=== PATIENT | female | born 1960 | race Caucasian/White ===

== ENCOUNTER 2017-10-29 09:06 | Outpatient (CLI) | payer OTHER | END 2017-10-29 09:07 | disposition home or self-care (01) | LOC: BICMAMMO 09:06 | PROVIDERS: ATTEND Family Medicine | DX: Z12.31 Encounter for screening mammogram for malignant neoplasm of breast (principal); Z80.3 Family history of malignant neoplasm of breast | CPT/HCPCS: 77063; 77067 ==

== ENCOUNTER 2017-11-18 10:24 | Outpatient (CLI) | payer OTHER ==
--- NOTE | 2017-11-18 13:00 | RAD ---
RIGHT HAND 3 VIEWS: HISTORY: Swelling x 2-4 weeks. No reported injury. COMPARISON: None. FINDINGS: No fracture. No cortical irregularity. No periosteal reaction. No significant soft tissue swelling . IMPRESSION: Unremarkable 3 views right hand. POS: [facility]
== END 2017-11-18 10:25 ==
LOC: SCSRAD 10:24
PROVIDERS: ATTEND Family Medicine
DX: M13.0 Polyarthritis, unspecified (principal)
CPT/HCPCS: 36415; 83520; 84550; 85652; 86038; 86200; 86225

== ENCOUNTER 2018-10-31 15:07 | Outpatient (CLI) | payer OTHER ==
--- NOTE | 2018-10-31 15:42 | MMO ---
Bilateral MAMMO Bilat Screen [facility]. CLINICAL HISTORY: Patient is 58 years old and is seen for screening. The patient has no family history of breast cancer. The patient has no personal history of cancer. VIEWS: The views performed were: bilateral craniocaudal with tomosynthesis and bilateral mediolateral oblique with tomosynthesis. FILMS COMPARED: The present examination has been compared to prior imaging studies performed at [facility] on 10/25/2016 and 10/29/2017. MAMMOGRAM FINDINGS: The breasts are heterogeneously dense, which could obscure a lesion on mammography. There are no suspicious masses, calcifications or areas of architectural distortion. There are benign appearing calcifications in both breasts. There are no suspicious masses, suspicious calcifications, or new areas of architectural distortion. IMPRESSION: THERE IS NO MAMMOGRAPHIC EVIDENCE OF MALIGNANCY. A ROUTINE FOLLOW-UP MAMMOGRAM IN 1 YEAR IS RECOMMENDED. THE RESULTS OF THIS EXAM WERE SENT TO THE PATIENT. ACR BI-RADS Category 2 - Benign finding MAMMOGRAPHY NOTE: 1. A negative mammogram report should not delay a biopsy if a dominant of clinically suspicious mass is present. 2. Approximately 10% to 15% of breast cancers are not detected by mammography. 3. Adenosis and dense breasts may obscure an underlying neoplasm. Reported by: FALLON MELGOZA MD Electonically Signed: [id number]
== END 2018-10-31 15:08 | disposition home or self-care (01) ==
LOC: BICMAMMO 15:07
PROVIDERS: ATTEND Family Medicine
DX: Z12.31 Encounter for screening mammogram for malignant neoplasm of breast (principal)
CPT/HCPCS: 77063; 77067

== ENCOUNTER 2019-11-04 09:12 | Outpatient (CLI) | payer OTHER ==
--- NOTE | 2019-11-04 11:51 | MMO ---
Bilateral MAMMO Bilat Screen [facility]. CLINICAL HISTORY: Patient is 59 years old and is seen for screening. The patient has the following family history of breast cancer: mother, malignant (generic). The patient has no personal history of cancer. VIEWS: The views performed were: bilateral craniocaudal with tomosynthesis; bilateral mediolateral oblique with tomosynthesis; and bilateral exaggerated craniocaudal. FILMS COMPARED: The present examination has been compared to prior imaging studies performed at [facility] on 10/25/2016, 10/29/2017 and 10/31/2018. This study has been interpreted with the assistance of computer-aided detection. MAMMOGRAM FINDINGS: The breasts are heterogeneously dense, which could obscure a lesion on mammography. Benign calcifications are noted bilaterally. There are no suspicious masses, suspicious calcifications, or new areas of architectural distortion. IMPRESSION: THERE IS NO MAMMOGRAPHIC EVIDENCE OF MALIGNANCY. A ROUTINE FOLLOW-UP MAMMOGRAM IN 1 YEAR IS RECOMMENDED. THE RESULTS OF THIS EXAM WERE SENT TO THE PATIENT. ACR BI-RADS Category 2 - Benign finding MAMMOGRAPHY NOTE: 1. A negative mammogram report should not delay a biopsy if a dominant of clinically suspicious mass is present. 2. Approximately 10% to 15% of breast cancers are not detected by mammography. 3. Adenosis and dense breasts may obscure an underlying neoplasm. Reported by: ANDREA GRIJALVA MD Electonically Signed: [id number]
== END 2019-11-04 09:13 | disposition home or self-care (01) ==
LOC: BICMAMMO 09:12
PROVIDERS: ATTEND Family Medicine
DX: Z12.31 Encounter for screening mammogram for malignant neoplasm of breast (principal); Z80.3 Family history of malignant neoplasm of breast
CPT/HCPCS: 77063; 77067

== ENCOUNTER 2021-08-22 16:57 | Outpatient (CLI) | payer OTHER | END 2021-08-22 16:58 | disposition home or self-care (01) | LOC: SCSRAD 16:57 | PROVIDERS: ATTEND Family Medicine | DX: S63.501A Unspecified sprain of right wrist, initial encounter (principal) ==

== ENCOUNTER 2021-11-07 10:12 | Outpatient (CLI) | payer OTHER | END 2021-11-07 10:13 | disposition home or self-care (01) | LOC: BICMAMMO 10:12 | PROVIDERS: ATTEND Family Medicine | DX: Z12.31 Encounter for screening mammogram for malignant neoplasm of breast (principal); Z85.820 Personal history of malignant melanoma of skin; Z80.3 Family history of malignant neoplasm of breast; Z91.89 Other specified personal risk factors, not elsewhere classified | CPT/HCPCS: 77063; 77067 ==

== ENCOUNTER 2021-12-09 07:18 | Inpatient (IN) | payer OTHER ==
[2021-12-09 08:32] VITALS: BMI 26.0
[2021-12-09] MEDS ORDERED: Fentanyl 100 MCG/2 ML VIAL SLOW IVP PRN ×3 (09:09→12:10)
[2021-12-09] MEDS ORDERED: Electrolyte Replacement Protocol 1 EACH FS SCH (09:45)
[2021-12-09] MEDS ORDERED: Norepinephrine 4 MG/4 ML VIAL ONE (09:50)
[2021-12-09] MEDS ORDERED: PHENYLEPHRINE-NS 100 MCG/ML 10 ML SYRINGE ONE ×2 (09:51→10:32)
[2021-12-09] MEDS ORDERED: Phenylephrine 10 MG/ML VIAL ONE (09:52)
[2021-12-09] MEDS: Ondansetron PF 4 MG/2 ML Vial IVP PRN (09:54)
[2021-12-09] MEDS ORDERED: Electrolyte Replacement Protocol FS PRN (10:00)
[2021-12-09] MEDS ORDERED: Pantoprazole 40 MG VIAL IVP SCH (10:00)
[2021-12-09] MEDS ORDERED: Magnesium 2 GM/50 ML(in water) 2 GM in Premix Bag 1 BAG IVPB SCH (10:00)
[2021-12-09] MEDS ORDERED: Bupivacaine PF 0.5% 30 ML VIAL ONE (10:09)
[2021-12-09] MEDS ORDERED: Iopamidol 0 ML ONE (10:09)
[2021-12-09] MEDS ORDERED: EPINEPHrine 1 MG/ML AMP ONE (10:09)
[2021-12-09] MEDS ORDERED: fentaNYL Citrate/PF 100 MCG/2 ML SYRINGE ONE (10:11)
[2021-12-09] MEDS ORDERED: Clindamycin/D5W 900 mg/50 ml Premix Bag ONE (10:25)
[2021-12-09] MEDS ORDERED: CEFAZOLIN 2 GM in Sodium Chloride 0.9% 100 ML IVPB SCH (10:30)
[2021-12-09] MEDS ORDERED: Clindamycin/D5W 900 MG in Premix Bag 1 BAG IVPB SCH (10:30)
[2021-12-09] MEDS ORDERED: FLU VACC QS2022-23(6MOS UP)/PF 60 MCG/0.5 ML SYRINGE IM ONE (10:30)
[2021-12-09] MEDS ORDERED: ePHEDrine 50 MG/ML VIAL ONE (10:32)
[2021-12-09] MEDS ORDERED: Rocuronium Bromide 10 MG/ML (10ML VIAL) ONE (10:32)
[2021-12-09] MEDS ORDERED: Dexamethasone 20 MG/5 ML VIAL ONE (10:32)
[2021-12-09] MEDS ORDERED: Metoclopramide HCl 10 MG/2 ML VIAL ONE (10:32)
[2021-12-09] MEDS ORDERED: Ondansetron PF 4 MG/2 ML Vial ONE (10:32)
[2021-12-09 10:40] LABS: INR-International Normal Ratio 1.8; Prothrombin Time 21.4 sec (12.0-14.7)
[2021-12-09 10:41] LABS: PTT 35.5 sec (22.9-36.1)
[2021-12-09] MEDS ORDERED: SUGAMMADEX SODIUM 200 MG/2 ML VIAL ONE ×2 (10:56→11:04)
[2021-12-09] MEDS: Cefepime 2 GM in Sodium Chloride 0.9% 100 ML IVPB SCH ×2 (11:45→17:18)
[2021-12-09] MEDS ORDERED: traMADol HCl 50 MG TAB PO PRN ×2 (12:10)
[2021-12-09] MEDS: Potassium Chloride 20 MEQ in Premix Bag 1 BAG IVPB SCH ×4 (12:21→17:22)
[2021-12-09 13:38] LABS: Creatinine, Urine 103.57 mg/dL (47-110); Sodium, Urine Less than 20 mmol/L (Not Available)
[2021-12-09] MEDS: Dronedarone HCl 400 MG TAB PO SCH (17:18)
[2021-12-09] MEDS: Sodium Chloride 0.9% 1,000 ML IV SCH (17:21)
[2021-12-09] MEDS: Metoprolol Tartrate 25 MG TAB PO SCH (21:53)
[2021-12-10] MEDS: Cefepime 2 GM in Sodium Chloride 0.9% 100 ML IVPB SCH ×3 (02:43→18:19)
[2021-12-10] MEDS: Sodium Chloride 0.9% 1,000 ML IV SCH (03:49)
[2021-12-10 04:27] LABS: #Basophils 0.1 thou/uL (0.0-0.2); #Eosinphils 0.1 thou/uL (0.0-0.7); #Monocytes 1.2 thou/uL (0.11-0.59); #Neutrophils 15.1 thou/uL (1.40-6.50); %Basophils 0.5 % (0.0-1.0); %Eosinophils 0.4 % (0.0-10.0); %Monocytes 6.4 % (0.0-10.0); %Neutrophils 81.7 % (42.0-75.0); Hemoglobin 9.4 g/dL (12.0-16.0); Mean Corpuscular HGB CONC 32.9 g/dL (32.0-36.0); Mean Corpuscular Hemoglobin 30.3 pg (27.0-31.0); Mean Corpuscular Volume 92.2 fL (78.0-98.0); Mean Platelet Volume 7.1 fL (7.4-10.4); Platelet Count 418 thou/uL (130-400); RBC Distribution Width 12.8 % (11.5-14.5); Red Blood Cell (RBC) Count 3.09 mill/uL (4.20-5.40); White Blood Cell (WBC) Count 18.5 thou/uL (4.8-10.8)
[2021-12-10 04:48] LABS: Lactic Acid 1.7 mmol/L (0.5-2.2)
[2021-12-10 04:53] LABS: Anion Gap 10 mmol/L (10-20); BUN (Urea Nitrogen) 12 mg/dL (9.8-20.1); Calc. Creatinine Clearance 98 mL/min (70-130); Calcium 7.8 mg/dL (7.8-10.44); Carbon Dioxide 25 mmol/L (23-31); Chloride 102 mmol/L (98-107); Estimated GFR 99; Glucose 116 mg/dL (80-115); Magnesium 2.1 mg/dL (1.6-2.6); Sodium 133 mmol/L (136-145)
[2021-12-10 04:56] LABS: ALT (SGPT) 129 U/L (8-55); AST (SGOT) 56 U/L (5-34); Albumin 2.7 g/dL (3.4-4.8); Alkaline Phosphatase 85 U/L (40-110); Bilirubin, Direct 0.2 mg/dL (0.1-0.3); Bilirubin, Total 0.4 mg/dL (0.2-1.2); Protein, Total 4.9 g/dL (5.8-8.1)
[2021-12-10] MEDS: Metoprolol Tartrate 25 MG TAB PO SCH (08:27)
[2021-12-10] MEDS ORDERED: ABATACEPT SC SCH (09:00)
[2021-12-10] MEDS: Dronedarone HCl 400 MG TAB PO SCH ×2 (09:09→18:19)
[2021-12-10] MEDS: Pantoprazole 40 MG VIAL IVP SCH (09:10)
[2021-12-10] MEDS: Levothyroxine Sodium 25 MCG TAB PO SCH (09:10)
[2021-12-10] MEDS: Acetaminophen 325 MG TAB PO PRN ×2 (14:42→19:08)
[2021-12-10] MEDS ORDERED: Metoprolol Tartrate 5 MG/5 ML VIAL IVP PRN (21:29)
[2021-12-11] MEDS: Acetaminophen 325 MG TAB PO PRN (00:22)
[2021-12-11] MEDS: Ondansetron PF 4 MG/2 ML Vial IVP PRN (00:22)
[2021-12-11] MEDS: Cefepime 2 GM in Sodium Chloride 0.9% 100 ML IVPB SCH ×3 (02:53→18:42)
[2021-12-11 05:06] LABS: Anion Gap 12 mmol/L (10-20); BUN (Urea Nitrogen) 13 mg/dL (9.8-20.1); Calc. Creatinine Clearance 94 mL/min (70-130); Carbon Dioxide 24 mmol/L (23-31); Chloride 102 mmol/L (98-107); Estimated GFR 98; Glucose 92 mg/dL (80-115); Magnesium 1.9 mg/dL (1.6-2.6); Potassium 4.3 mmol/L (3.5-5.1); Sodium 134 mmol/L (136-145)
[2021-12-11 07:01] LABS: Hemoglobin 10.7 g/dL (12.0-16.0); Lymphocytes 12 % (21-51); MDiff Complete? YES; Mean Corpuscular Hemoglobin 30.6 pg (27.0-31.0); Mean Corpuscular Volume 92.6 fL (78.0-98.0); Mean Platelet Volume 6.8 fL (7.4-10.4); Monocytes 8 % (0-10); Neutrophil 80 % (42-75); Platelet Count 539 thou/uL (130-400); Platelet Morphology Comment Appears Increased; Polychromasia MODERATE = 3-4 cells (100X) (0-2/hpf); Small Platelets SLIGHT
[2021-12-11] MEDS: Levothyroxine Sodium 25 MCG TAB PO SCH (08:43)
[2021-12-11] MEDS: Pantoprazole 40 MG VIAL IVP SCH (08:43)
[2021-12-11] MEDS: Dronedarone HCl 400 MG TAB PO SCH ×2 (08:43→16:21)
[2021-12-11] MEDS ORDERED: Magnesium 2 GM/50 ML(in water) 2 GM in Premix Bag 1 BAG IVPB SCH (09:00)
[2021-12-11] MEDS ORDERED: Digoxin 0.5 MG/2 ML AMP SLOW IVP SCH ×2 (10:30→12:30)
[2021-12-11] MEDS ORDERED: Colchicine 0.6 MG TAB PO SCH (10:30)
[2021-12-11] MEDS ORDERED: Digoxin 0.25 MG TAB PO SCH (14:30)
[2021-12-11] MEDS: Sodium Chloride 0.9% 1,000 ML IV SCH (14:51)
[2021-12-11] MEDS: Colchicine 0.6 MG TAB PO SCH (20:28)
[2021-12-12] MEDS: Cefepime 2 GM in Sodium Chloride 0.9% 100 ML IVPB SCH ×3 (02:02→17:17)
[2021-12-12 04:37] LABS: #Basophils 0.1 thou/uL (0.0-0.2); #Eosinphils 0.1 thou/uL (0.0-0.7); #Lymphocytes 1.7 thou/uL (1.20-3.40); #Monocytes 1.1 thou/uL (0.11-0.59); #Neutrophils 16.8 thou/uL (1.40-6.50); %Basophils 0.3 % (0.0-1.0); %Eosinophils 0.5 % (0.0-10.0); %Lymphocytes 8.7 % (21.0-51.0); %Monocytes 5.5 % (0.0-10.0); Hemoglobin 10.9 g/dL (12.0-16.0); Mean Corpuscular Volume 93.8 fL (78.0-98.0); Mean Platelet Volume 6.5 fL (7.4-10.4); Platelet Count 533 thou/uL (130-400); RBC Distribution Width 13.2 % (11.5-14.5); Red Blood Cell (RBC) Count 3.64 mill/uL (4.20-5.40); White Blood Cell (WBC) Count 19.7 thou/uL (4.8-10.8)
[2021-12-12 05:05] LABS: ALT (SGPT) 74 U/L (8-55); AST (SGOT) 24 U/L (5-34); Albumin 2.9 g/dL (3.4-4.8); Alkaline Phosphatase 81 U/L (40-110); Anion Gap 9 mmol/L (10-20); BUN (Urea Nitrogen) 8 mg/dL (9.8-20.1); Bilirubin, Total 0.6 mg/dL (0.2-1.2); Calc. Creatinine Clearance 99 mL/min (70-130); Carbon Dioxide 27 mmol/L (23-31); Chloride 100 mmol/L (98-107); Estimated GFR 100; Globulin 2.6 g/dL (2.4-3.5); Glucose 107 mg/dL (80-115); Potassium 4.2 mmol/L (3.5-5.1); Protein, Total 5.5 g/dL (5.8-8.1); Sodium 132 mmol/L (136-145)
[2021-12-12] MEDS: Digoxin 0.25 MG TAB PO SCH (09:20)
[2021-12-12] MEDS: Colchicine 0.6 MG TAB PO SCH ×2 (09:20→21:17)
[2021-12-12] MEDS: Levothyroxine Sodium 25 MCG TAB PO SCH (09:21)
[2021-12-12] MEDS: Dronedarone HCl 400 MG TAB PO SCH ×2 (09:21→16:27)
[2021-12-12] MEDS: Sodium Chloride 0.9% 1,000 ML IV SCH (16:24)
[2021-12-12] MEDS: Ondansetron PF 4 MG/2 ML Vial IVP PRN (16:27)
[2021-12-12] MEDS ORDERED: Loperamide HCl 2 MG CAP PO PRN (20:37)
[2021-12-13] MEDS: Cefepime 2 GM in Sodium Chloride 0.9% 100 ML IVPB SCH ×2 (01:54→09:39)
[2021-12-13 05:13] LABS: #Eosinphils 0.1 thou/uL (0.0-0.7); #Lymphocytes 2.1 thou/uL (1.20-3.40); #Neutrophils 10.6 thou/uL (1.40-6.50); %Basophils 0.2 % (0.0-1.0); %Eosinophils 0.8 % (0.0-10.0); %Lymphocytes 14.9 % (21.0-51.0); %Monocytes 7.5 % (0.0-10.0); %Neutrophils 76.6 % (42.0-75.0); Hemoglobin 10.6 g/dL (12.0-16.0); Mean Corpuscular HGB CONC 32.1 g/dL (32.0-36.0); Mean Corpuscular Hemoglobin 29.9 pg (27.0-31.0); Mean Platelet Volume 6.7 fL (7.4-10.4); Platelet Count 494 thou/uL (130-400); RBC Distribution Width 13.3 % (11.5-14.5); Red Blood Cell (RBC) Count 3.55 mill/uL (4.20-5.40); White Blood Cell (WBC) Count 13.8 thou/uL (4.8-10.8)
[2021-12-13 05:15] LABS: ALT (SGPT) 50 U/L (8-55); AST (SGOT) 21 U/L (5-34); Albumin 2.7 g/dL (3.4-4.8); Alkaline Phosphatase 74 U/L (40-110); Anion Gap 13 mmol/L (10-20); BUN (Urea Nitrogen) 7 mg/dL (9.8-20.1); Bilirubin, Total 0.6 mg/dL (0.2-1.2); Calc. Creatinine Clearance 120 mL/min (70-130); Carbon Dioxide 24 mmol/L (23-31); Chloride 103 mmol/L (98-107); Estimated GFR 104; Globulin 2.4 g/dL (2.4-3.5); Glucose 93 mg/dL (80-115); Potassium 3.8 mmol/L (3.5-5.1); Protein, Total 5.1 g/dL (5.8-8.1); Sodium 136 mmol/L (136-145)
[2021-12-13] MEDS: Dronedarone HCl 400 MG TAB PO SCH ×2 (09:40→17:20)
[2021-12-13] MEDS: Levothyroxine Sodium 25 MCG TAB PO SCH (09:40)
[2021-12-13] MEDS: Digoxin 0.25 MG TAB PO SCH (09:40)
[2021-12-13] MEDS: Sodium Chloride 0.9% 1,000 ML IV SCH (17:33)
[2021-12-14 04:20] LABS: #Eosinphils 0.1 thou/uL (0.0-0.7); #Lymphocytes 1.5 thou/uL (1.20-3.40); #Monocytes 0.9 thou/uL (0.11-0.59); #Neutrophils 8.5 thou/uL (1.40-6.50); %Lymphocytes 13.9 % (21.0-51.0); %Monocytes 8.2 % (0.0-10.0); %Neutrophils 76.9 % (42.0-75.0); Hemoglobin 9.7 g/dL (12.0-16.0); Mean Corpuscular Hemoglobin 29.7 pg (27.0-31.0); Mean Corpuscular Volume 92.9 fL (78.0-98.0); Mean Platelet Volume 6.3 fL (7.4-10.4); Platelet Count 481 thou/uL (130-400); RBC Distribution Width 13.2 % (11.5-14.5); Red Blood Cell (RBC) Count 3.26 mill/uL (4.20-5.40); White Blood Cell (WBC) Count 11.1 thou/uL (4.8-10.8)
[2021-12-14 04:37] LABS: ALT (SGPT) 46 U/L (8-55); AST (SGOT) 24 U/L (5-34); Albumin 2.6 g/dL (3.4-4.8); Alkaline Phosphatase 66 U/L (40-110); Anion Gap 12 mmol/L (10-20); BUN (Urea Nitrogen) 6 mg/dL (9.8-20.1); Bilirubin, Total 0.6 mg/dL (0.2-1.2); Calc. Creatinine Clearance 104 mL/min (70-130); Calcium 7.8 mg/dL (7.8-10.44); Carbon Dioxide 26 mmol/L (23-31); Chloride 100 mmol/L (98-107); Estimated GFR 102; Globulin 2.4 g/dL (2.4-3.5); Glucose 88 mg/dL (80-115); Potassium 3.7 mmol/L (3.5-5.1); Sodium 134 mmol/L (136-145)
[2021-12-14] MEDS: Levothyroxine Sodium 25 MCG TAB PO SCH (09:19)
[2021-12-14] MEDS: Dronedarone HCl 400 MG TAB PO SCH ×2 (09:19→17:09)
[2021-12-14] MEDS: Digoxin 0.25 MG TAB PO SCH (09:19)
[2021-12-14] MEDS: Ondansetron PF 4 MG/2 ML Vial IVP PRN (13:10)
[2021-12-14] MEDS: Acetaminophen 325 MG TAB PO PRN (13:13)
[2021-12-14] MEDS ORDERED: Lidocaine 1% (PF) 30 ML VIAL ONE (15:55)
[2021-12-14] MEDS ORDERED: Sodium Chloride 0.9% 1,000 ML IV SCH (16:15)
[2021-12-14 16:33] LABS: #Eosinphils 0.1 thou/uL (0.0-0.7); #Lymphocytes 1.6 thou/uL (1.20-3.40); #Monocytes 1.3 thou/uL (0.11-0.59); #Neutrophils 12.4 thou/uL (1.40-6.50); %Basophils 0.1 % (0.0-1.0); %Eosinophils 0.4 % (0.0-10.0); %Lymphocytes 10.6 % (21.0-51.0); %Monocytes 8.4 % (0.0-10.0); %Neutrophils 80.6 % (42.0-75.0); Hemoglobin 11.1 g/dL (12.0-16.0); Mean Corpuscular HGB CONC 32.4 g/dL (32.0-36.0); Mean Corpuscular Volume 92.6 fL (78.0-98.0); Mean Platelet Volume 6.2 fL (7.4-10.4); Platelet Count 537 thou/uL (130-400); RBC Distribution Width 13.3 % (11.5-14.5); White Blood Cell (WBC) Count 15.4 thou/uL (4.8-10.8)
[2021-12-14 16:47] LABS: ALT (SGPT) 43 U/L (8-55); AST (SGOT) 19 U/L (5-34); Albumin 2.8 g/dL (3.4-4.8); Alkaline Phosphatase 76 U/L (40-110); Anion Gap 14 mmol/L (10-20); BUN (Urea Nitrogen) 6 mg/dL (9.8-20.1); Bilirubin, Total 0.8 mg/dL (0.2-1.2); Calc. Creatinine Clearance 97 mL/min (70-130); Calcium 7.9 mg/dL (7.8-10.44); Carbon Dioxide 24 mmol/L (23-31); Chloride 99 mmol/L (98-107); Estimated GFR 100; Globulin 2.6 g/dL (2.4-3.5); Glucose 134 mg/dL (80-115); Potassium 3.5 mmol/L (3.5-5.1); Protein, Total 5.4 g/dL (5.8-8.1); Sodium 133 mmol/L (136-145)
[2021-12-14 17:57] LABS: Pleural Fluid, Amylase Less than 30 U/L (Not Available); Pleural Fluid, Glucose 113 mg/dL; Pleural Fluid, LDH 153 U/L (Not Available); Pleural Fluid, Protein 2.7 g/dL
[2021-12-14 18:48] LABS: RBC Count-Automated (BF) 634 /cu.mm; WBC/Nucleated-Auto (BF) 823 /cu.mm
[2021-12-14 19:12] LABS: Body Fluid Source Pleural Fluid
[2021-12-14 19:13] LABS: BF Color Yellow; Clarity Hazy (Clear); Tube # EDTA
[2021-12-14] MEDS ORDERED: Cefepime 1 GM in Sodium Chloride 0.9% 100 ML IVPB SCH (19:15)
[2021-12-14 19:20] LABS: BF Segmented Neutrophils 10 %
[2021-12-14 19:22] LABS: Cell Count Non Hematic 50 %; Lymphocytes 40 %
[2021-12-14 20:00] LABS: Bacteria/HPF None Seen HPF (None Seen); Bilirubin Negative (Negative); Blood, Urine 1+ (Negative); Clarity Clear (Clear); Glucose, Urine (Dipstick) Normal (Negative); Ketone, Urine Negative (Negative); Leukocyte Negative Leu/uL (Negative); Nitrite Negative (Negative); Protein, Urine (Dipstick) Negative (Neg-Trace); Specific Gravity, Urine 1.008 (1.002-1.036); Squamous Epithelial None Seen HPF (0-3); Urobilinogen Normal mg/dL (Less than 2); WBC/HPF 0-3 HPF (0-3)
[2021-12-14 20:03] LABS: Urine Culture Reflex No No
[2021-12-14] MEDS: Sodium Chloride 0.9% 1,000 ML IV SCH (20:48)
[2021-12-14] MEDS: Ibuprofen 600 MG TAB PO SCH (20:48)
[2021-12-14] MEDS: Cefepime 2 GM in Sodium Chloride 0.9% 100 ML IVPB SCH (20:49)
[2021-12-15] MEDS ORDERED: Potassium Chloride 20 MEQ TAB PO SCH (00:30)
[2021-12-15] MEDS: Cefepime 2 GM in Sodium Chloride 0.9% 100 ML IVPB SCH ×3 (03:54→20:36)
[2021-12-15] MEDS: Ibuprofen 600 MG TAB PO SCH ×4 (03:54→20:36)
[2021-12-15 04:31] LABS: #Basophils 0.1 thou/uL (0.0-0.2); #Eosinphils 0.2 thou/uL (0.0-0.7); #Lymphocytes 2.3 thou/uL (1.20-3.40); #Monocytes 1.3 thou/uL (0.11-0.59); #Neutrophils 7.2 thou/uL (1.40-6.50); %Basophils 0.5 % (0.0-1.0); %Eosinophils 1.4 % (0.0-10.0); %Monocytes 11.8 % (0.0-10.0); %Neutrophils 65.3 % (42.0-75.0); Hemoglobin 10.5 g/dL (12.0-16.0); Mean Corpuscular HGB CONC 31.8 g/dL (32.0-36.0); Mean Corpuscular Hemoglobin 29.8 pg (27.0-31.0); Mean Corpuscular Volume 93.7 fL (78.0-98.0); Mean Platelet Volume 6.3 fL (7.4-10.4); Platelet Count 529 thou/uL (130-400); RBC Distribution Width 13.3 % (11.5-14.5); Red Blood Cell (RBC) Count 3.53 mill/uL (4.20-5.40); White Blood Cell (WBC) Count 11.1 thou/uL (4.8-10.8)
[2021-12-15 04:53] LABS: ALT (SGPT) 36 U/L (8-55); AST (SGOT) 18 U/L (5-34); Albumin 2.5 g/dL (3.4-4.8); Alkaline Phosphatase 69 U/L (40-110); Anion Gap 12 mmol/L (10-20); BUN (Urea Nitrogen) 6 mg/dL (9.8-20.1); Bilirubin, Total 0.5 mg/dL (0.2-1.2); Calc. Creatinine Clearance 106 mL/min (70-130); Calcium 7.8 mg/dL (7.8-10.44); Carbon Dioxide 25 mmol/L (23-31); Chloride 104 mmol/L (98-107); Estimated GFR 102; Globulin 2.4 g/dL (2.4-3.5); Glucose 90 mg/dL (80-115); Potassium 3.9 mmol/L (3.5-5.1); Protein, Total 4.9 g/dL (5.8-8.1); Sodium 137 mmol/L (136-145)
[2021-12-15] MEDS: Sodium Chloride 0.9% 1,000 ML IV SCH ×2 (06:51→16:22)
[2021-12-15] MEDS: Dronedarone HCl 400 MG TAB PO SCH ×2 (09:34→16:24)
[2021-12-15] MEDS: Digoxin 0.25 MG TAB PO SCH (09:34)
[2021-12-15] MEDS: Levothyroxine Sodium 25 MCG TAB PO SCH (09:35)
[2021-12-16] MEDS: Cefepime 2 GM in Sodium Chloride 0.9% 100 ML IVPB SCH (03:58)
[2021-12-16 08:01] VITALS: BP 128/69; TEMP 97
[2021-12-16] MEDS: Digoxin 0.25 MG TAB PO SCH (09:21)
[2021-12-16] MEDS: Dronedarone HCl 400 MG TAB PO SCH (09:21)
[2021-12-16] MEDS: Ibuprofen 600 MG TAB PO SCH (09:22)
[2021-12-16] MEDS: Levothyroxine Sodium 25 MCG TAB PO SCH (09:22)
== END 2021-12-16 12:00 | disposition home or self-care (01) | DRG 271 ==
LOC: CCU 08:15 → 2NO 12-10 15:27
PROVIDERS: ADMIT Internal Medicine; ATTEND Internal Medicine
PROC: 0W9D0ZZ Drainage of Pericardial Cavity, Open Approach (ICD-10-PCS; principal; 2021-12-09)
PROC: 0W9B3ZZ Drainage of Left Pleural Cavity, Percutaneous Approach (ICD-10-PCS; 2021-12-14)
DX: I30.9 Acute pericarditis, unspecified (principal); I48.19 Other persistent atrial fibrillation; J90 Pleural effusion, not elsewhere classified; I48.3 Typical atrial flutter; Z20.822 Contact with and (suspected) exposure to COVID-19; E03.9 Hypothyroidism, unspecified; I10 Essential (primary) hypertension; M06.9 Rheumatoid arthritis, unspecified; E86.0 Dehydration; E87.6 Hypokalemia; D64.9 Anemia, unspecified; E83.42 Hypomagnesemia; Z79.01 Long term (current) use of anticoagulants; Z90.09 Acquired absence of other part of head and neck; Z82.49 Family history of ischemic heart disease and other diseases of the circulatory system; Z79.899 Other long term (current) drug therapy; Z79.890 Hormone replacement therapy; Z87.891 Personal history of nicotine dependence; Z88.0 Allergy status to penicillin; Z85.828 Personal history of other malignant neoplasm of skin; Z88.2 Allergy status to sulfonamides; Z91.048 Other nonmedicinal substance allergy status
CPT/HCPCS: 36415; 71045; 80048; 80053; 80076; 81001; 82150; 82570; 82945; 83605; 83615; 83735; 83935; 84157; 84300; 85025; 85060; 85610; 85730; 86850; 86900; 86901; 87040; 87070; 87086; 87205; 88112; 88305; 88342; 89051; 93306; C9113; J0171; J0692; J1100; J1160; J2001; J2370; J2405; J2765; J3010; J3475; J3480; J3490; J7050; Q9967; S0020

== ENCOUNTER 2021-12-27 13:06 | Outpatient (CLI) | payer OTHER | END 2021-12-27 13:07 | disposition home or self-care (01) | LOC: SCSRAD 13:06 | PROVIDERS: ATTEND Family Medicine | DX: R07.89 Other chest pain (principal); J90 Pleural effusion, not elsewhere classified ==

== ENCOUNTER 2025-01-14 12:49 | Outpatient (CLI) | payer MEDICARE, OTHER | END 2025-01-14 12:50 | disposition home or self-care (01) | LOC: BICMAMMO 12:49 | PROVIDERS: ATTEND Family Medicine | DX: Z12.31 Encounter for screening mammogram for malignant neoplasm of breast (principal); Z80.3 Family history of malignant neoplasm of breast; Z91.89 Other specified personal risk factors, not elsewhere classified; Z85.820 Personal history of malignant melanoma of skin | CPT/HCPCS: 77063; 77067 ==